=== PATIENT | male | born 1985 | race Caucasian/White ===

== ENCOUNTER 2024-03-04 22:09 | Emergency (ER) | payer OTHER, SELFPAY ==
[2024-03-04] VITALS (12 sets, daily range): BP systolic 135–156; BP diastolic 90–101; PULSE 78–86; RESP 15–23; TEMP 35.9; O2SAT 92–100
--- NOTE | 2024-03-04 22:14 | ECG_ITS ---
SEE SCANNED COPY FOR CONFIRMED REPORT MTDD
--- NOTE | 2024-03-04 22:15 | ED.DIZZY ---
HPI - Dizziness General Chief Complaint: Unspecified Stated Complaint: high bp Time Seen by Provider: 03/04/24 22:13 Source: patient and EMS Mode of arrival: EMS Limitations: no limitations History of Present Illness HPI Narrative: this is a 39-year-old male that presents with some high blood pressure and dizziness has a personal blood pressure monitor at home and has been getting high readings but here in the ER his blood pressure 145/98 with a heart rate of 85. The patient has a history of hypertension and depression. Patient has been seen approximately 10 times at [facility] for similar symptoms. There is no nausea vomiting no chest pain no shortness of breath no abdominal pain no dysuria no flank pain or hematuria. MD elicited complaint: dizziness Onset (ago): hour(s) Timing: gradual onset Severity: mild Description: sense of movement History of similar symptoms: Yes Exacerbating factors: change in body position Related Data Home Medications Medication Instructions Recorded Confirmed hydroxyzine HCl 50 mg tablet 50 mg PO TID PRN Anxiety 03/04/24 03/04/24 metoprolol tartrate 37.5 mg tablet 37.5 mg PO BID 03/04/24 03/04/24 mirtazapine 30 mg BYMOUTH DAILY 03/04/24 03/04/24 Allergies Allergy/AdvReac Type Severity Reaction Status Date / Time No Known Allergies Allergy Verified 03/04/24 22:33 Review of Systems Review of Systems: All systems reviewed & are unremarkable except as noted in HPI and below PMFSH Past Medical History Medical History HTN (hypertension) Exam Const: General: healthy appearing, no acute distress and alert Nutritional Appearance: well nourished Orientation/consciousness: patient oriented x3 Limitations: no limitations Eyes: Conjunctivae: conjunctivae normal Neck: Neck: normal visual inspection Chest: Chest palpation & inspection: normal inspection of the chest Resp: Effort & Inspection: normal respiratory effort Auscultation: clear to auscultation bilaterally Cardio: Rate: regular rate Rhythm: regular rhythm GI: GI Palp: Yes Soft to palpation Skin: General skin exam: normal color Rashes: no rashes Wounds: no wounds Neuro: General: patient oriented x3 Cranial nerves: Yes Nystagmus not present Speech: normal speech Gait exam (Neuro): Normal gait present Extrem: General: normal to inspection and no clubbing, cyanosis or edema Psych: Attitude: cooperative Course Course Emergency Course: patient's vitals stable 145/98 his is blood pressure with heart rate of 85 respiratory rate of 15 patient is afebrile satting at 98%. EKG shows normal sinus rhythm advised patient to continue his current medical regimen and follow-up with his primary care provider. Vital Signs Vital signs: Vital Signs Pulse Rate 79 03/04/24 22:09 Temperature 35.9 C L 03/04/24 22:12 Pulse Rate 82 03/04/24 23:01 Respiratory Rate 16 03/04/24 23:01 Blood Pressure 156/91 H 03/04/24 23:01 Pulse Oximetry 95 03/04/24 23:01 Oxygen Delivery Room Air 03/04/24 22:16 MDM - Dizziness Lab Data 03/04/24 22:36 03/04/24 22:36 Labs: Lab Results 03/04/24 Range/Units 22:36 WBC 7.7 (4.8-10.8) K/mm3 RBC 5.27 (4.70-6.10) M/mm3 Hgb 15.6 (14.0-18.0) g/dL Hct 47.4 (40.0-54.0) % MCV 89.9 (78.0-102.0) fL MCH 29.6 (27.0-31.0) pg MCHC 32.9 (32-36) g/dL RDW 12.4 (11.6-14.4) % Plt Count 201 (150-420) K/mm3 MPV 10.0 (8.7-11.0) fl Immature Gran % (Auto) 0.5 H (0.0-0.0) % Neut % (Auto) 53.3 (50.0-70.0) % Lymph % (Auto) 32.5 (18.0-42.0) % [place] % (Auto) 9.1 (2.0-11.0) % Eos % (Auto) 4.0 (1.0-6.0) % Baso % (Auto) 0.6 (0.0-1.0) % Lymph # (Auto) 2.51 (1.10-4.50) K/mm3 [place] # (Auto) 0.70 (0.10-0.90) K/mm3 Eos # (Auto) 0.31 (0.02-0.50) K/mm3 Baso # (Auto) 0.05 (0.00-0.10) K/mm3 Abs Immat Gran (auto) 0.04 H (0.00-0.00) K/mm3 Absolu
[2024-03-04 22:42] LABS: Basophils Absolute Auto 0.05 K/mm3 (0.00-0.10); Basophils Percent Auto 0.6 % (0.0-1.0); Eosinophils Absolute Auto 0.31 K/mm3 (0.02-0.50); Hematocrit 47.4 % (40.0-54.0); Hemoglobin 15.6 g/dL (14.0-18.0); Immature Granulocyte Absolute 0.04 K/mm3 (0.00-0.00); Immature Granulocyte Percent A 0.5 % (0.0-0.0); Lymphocytes Absolute Auto 2.51 K/mm3 (1.10-4.50); Lymphocytes Percent Auto 32.5 % (18.0-42.0); Mean Corpuscular HGB Conc 32.9 g/dL (32-36); Mean Corpuscular Hemoglobin 29.6 pg (27.0-31.0); Mean Corpuscular Volume 89.9 fL (78.0-102.0); Monocytes Percent Auto 9.1 % (2.0-11.0); Neutrophils Absolute Auto 4.12 K/mm3 (1.70-7.20); Neutrophils Percent Auto 53.3 % (50.0-70.0); Platelet Count Result 201 K/mm3 (150-420); Red Blood Count 5.27 M/mm3 (4.70-6.10); Red Cell Distribution Width 12.4 % (11.6-14.4); White Blood Count 7.7 K/mm3 (4.8-10.8)
[2024-03-04 22:55] LABS: Alanine Aminotransferase 51 U/L (16-63); Albumin Level 3.7 g/dL (3.4-5.0); Alkaline Phosphatase 83 U/L (46-116); Anion Gap 6 mmol/L (4-12); Aspartate Amino Transferase 23 U/L (15-37); Bilirubin,Total 0.4 mg/dL (0.00-1.00); Blood Urea Nitrogen 17 mg/dL (7-18); Calcium 9.4 mg/dL (8.5-10.1); Carbon Dioxide 32 mmol/L (21-32); Chloride 101 mmol/L (98-108); Estimated CRCL calculation 84 ml/min; Estimated Glomerular Filt Rate 54; Glucose 119 mg/dL (70-99); Osmolality Calculated 290 mOsm/kg (285-295); Potassium 4.1 mmol/L (3.5-5.1); Sodium 139 mmol/L (136-145); Total Protein 7.4 g/dL (6.4-8.2)
--- NOTE | 2024-03-04 22:55 | PC.NURSE ---
report to JOHN Jackson. all questions answered. pt and notified of staffing change. call abdi in reach. no other needs at this time
== END 2024-03-04 23:15 | disposition home or self-care (01) ==
PROVIDERS: Emergency Provider Emergency Medicine
DX: I10 Essential (primary) hypertension (principal); F32.A Depression, unspecified
CPT/HCPCS: 36415; 80053; 85025; 93005; 99283